=== PATIENT | female | born 1935 | race Caucasian/White ===

== ENCOUNTER 2019-10-18 10:39 | Outpatient (CLI) | payer MEDICARE, OTHER | END 2019-10-18 23:59 | disposition home or self-care (01) | LOC: LAB 10:39 | PROVIDERS: ATTEND Orthopaedic Surgery Sports Medicine | DX: Z01.812 Encounter for preprocedural laboratory examination (principal); Z11.59 Encounter for screening for other viral diseases | CPT/HCPCS: U0003-CS ==

== ENCOUNTER 2019-10-24 06:35 | Inpatient (IN) | payer MEDICARE, OTHER ==
[~2019-10-24] VITALS: Ht 160 cm; Wt 77.1 kg
[2019-10-24] MEDS ORDERED: POLYMYXIN B SULFATE 500,000 UNITS VIAL ONE (07:29)
[2019-10-24] MEDS ORDERED: VANCOMYCIN 1000 MG VIAL ONE (07:29)
[2019-10-24] MEDS ORDERED: BUPIVACAINE 0.25% 30 ML VIAL ONE (07:30)
[2019-10-24] MEDS ORDERED: BACITRACIN 50,000 UNITS VIAL ONE (07:30)
[2019-10-24 07:35] LABS: *BILIRUBIN,URIN NEGATIVE (NEGATIVE); *BLOOD, URINE NEGATIVE (NEGATIVE); *CLARITY,URINE CLEAR (CLEAR); *COLOR,URINE YELLOW (YELLOW); *KETONES,URINE NEGATIVE (NEGATIVE); *UROBILINOGEN,URINE 0.2 E.U./dl (NORMAL); LEUKOCYTE ESTERASE ,URINE TRACE (NEGATIVE); NITRITE, URINE NEGATIVE (NEGATIVE); UGLUCOSE NEGATIVE (NEGATIVE)
[2019-10-24 08:07] VITALS: BP 144/67
[2019-10-24 08:12] LABS: BACTERIA,URINE NONE SEEN /HPF (NONE SEEN); RBC,URINE 0-3 /HPF (0-3); SQUAMOUS EPITHELIAL CELL,UR FEW /HPF (NONE SEEN); WBC,URINE 0-3 /HPF (0-3)
[2019-10-24 08:13] LABS: URINE AMORPHOUS URATE FEW /HPF
[2019-10-24] MEDS ORDERED: BUPIVACAINE/EPI PF 0.25% 30 ML VIAL ONE (08:45)
[2019-10-24] MEDS ORDERED: ESMOLOL HCL 100 MG/10 ML VIAL IV ONE (11:35)
[2019-10-24] MEDS ORDERED: BACITRACIN 50,000 UNITS VIAL IM ONE (11:35)
[2019-10-24] MEDS ORDERED: CEFAZOLIN 1 G VIAL IM ONE (11:35)
[2019-10-24] MEDS ORDERED: VANCOMYCIN OP ONE (11:35)
[2019-10-24] MEDS ORDERED: ONDANSETRON 4 MG/2 ML VIAL IV ONE (11:35)
[2019-10-24] MEDS ORDERED: IV NORMAL SALINE 1000 ML BAG IV ONE ×2 (11:35)
[2019-10-24] MEDS ORDERED: DEXAMETHASONE SOD PHOSPHATE 4 MG INJ IV ONE (11:35)
[2019-10-24] MEDS ORDERED: POLYMYXIN B SULFATE 500,000 UNITS VIAL IM ONE (11:35)
[2019-10-24] MEDS ORDERED: SEVOFLURANE 250 ML BOTTLE IH ONE (11:35)
[2019-10-24] MEDS ORDERED: ETOMIDATE 20 MG/10 ML VIAL IV ONE (11:35)
[2019-10-24] MEDS ORDERED: SUCCINYLCHOLINE CHLORIDE 200 MG/10 ML VIAL IV ONE (11:35)
[2019-10-24] MEDS ORDERED: FENTANYL CITRATE 100 MCG/2 ML AMPUL ONE (11:48)
[2019-10-24] MEDS ORDERED: LABETALOL HCL 100 MG/20 ML VIAL ONE (12:04)
[2019-10-24] MEDS ORDERED: hydrALAZINE HCL 20 MG/1 ML VIAL ONE (12:50)
[2019-10-24] MEDS ORDERED: MORPHINE SULFATE 4 MG/1 ML DISP.SYRIN IV PRN (14:45)
[2019-10-24] MEDS ORDERED: ONDANSETRON 4 MG/2 ML VIAL IV PRN ×2 (14:45→15:00)
[2019-10-24] MEDS ORDERED: KETOROLAC TROMETHAMINE 30 MG INJ IVP PRN (14:45)
[2019-10-24] MEDS ORDERED: ZOLPIDEM 5 MG TABLET PO PRN (14:45)
[2019-10-24] MEDS ORDERED: IV D5W-0.45% NS +20 KCL 1,000 ML IV PRN (14:45)
[2019-10-24] MEDS ORDERED: ACETAMINOPHEN 325 MG TABLET PO PRN ×2 (14:45→15:00)
[2019-10-24] MEDS ORDERED: TEMAZEPAM 15 MG CAPSULE PO PRN (15:00)
[2019-10-24] MEDS ORDERED: MAGNESIUM HYDROXIDE 30 ML LIQUID UDC PO PRN (15:00)
[2019-10-24] MEDS ORDERED: Z GUARD REMEDY PASTE 57 GM TUBE TOP PRN (15:00)
[2019-10-24 16:17] VITALS: BP 144/62
[2019-10-24] MEDS ORDERED: BENZOCAINE/MENTH/CETYLPYRD LOZENGE MM PRN (16:45)
[2019-10-24] MEDS ORDERED: CEFAZOLIN 1 G in IV DEXTROSE 5% 50 ML IV SCH (18:00)
--- NOTE | 2019-10-24 19:11 | NUR ---
Patient received from surgery in stable condition with no signs of distress; patient with stable vital signs throughout shift;patient given pain medication from pain control ; patient calm and comfortable upon final assessment.
--- NOTE | 2019-10-24 19:30 | NUR ---
RECEIVED PT IN NO ACUTE DISTRESS. IV INTACT. SAFETY AND COMFORT PROVIDED. WILL CONTINUE TO MONITOR.
[2019-10-24 20:01] VITALS: BP 135/72
[2019-10-24] MEDS ORDERED: ROSUVASTATIN CALCIUM 10 MG TABLET PO SCH (21:00)
[2019-10-24] MEDS ORDERED: ATORVASTATIN 20 MG TABLET PO SCH (21:00)
--- NOTE | 2019-10-24 23:00 | NUR ---
HANDS OFF REPORT TO ANA HUTTON. PT IN NO ACUTE DISTRESS.SAFETY AND COMFORT PROVIDED.
--- NOTE | 2019-10-25 | NUR ---
Patient's IV got infiltrated and patient refusing to reinsert IV and does not want the IV fluids. Called Dr. Rojas w/ order OK not to reinsert IV and d/c IV fluids and IV ATB. N.o for Keflexb 500mg PO BID
[2019-10-25] MEDS: CEphaleXIN 500 MG CAPSULE PO SCH ×2 (00:30→08:49)
[2019-10-25] MEDS: OXYCODONE/APAP 5-325 MG TABLET PO PRN ×3 (00:38→11:44)
[2019-10-25 04:20] VITALS: BP 114/63
--- NOTE | 2019-10-25 06:55 | NUR ---
Patient slept well. No SOB noted. s/p L shoulder total replacement, dressing intact, sling on L arm kept in place. Medicated w/ PRN Percocet x 2 this shift. All needs attended. Will endorse accordingly
[2019-10-25] MEDS ORDERED: PANTOPRAZOLE SODIUM 40 MG TABLET.DR PO SCH (07:00)
[2019-10-25 07:10] LABS: BASOPHILS % (AUTO) 0.2 % (0.0-2.0); EOSINOPHILS % (AUTO) 0.4 % (0.0-7.0); HEMOGLOBIN 11.6 g/dL (10.9-14.3); LYMPHOCYTES # (AUTO) 2.1 K/uL (20.0-40.0); LYMPHOCYTES % (AUTO) 15.2 % (20.5-51.5); MEAN CORPUSCULAR HEMOGLOBIN 28.7 uug (24.7-32.8); MEAN CORPUSCULAR HGB CONC 34 g/dL (32.3-35.6); MEAN CORPUSCULAR VOLUME 84.2 fL (75.5-95.3); MONOCYTES # (AUTO) 1.4 K/uL (2.0-10.0); MONOCYTES % (AUTO) 10.3 % (0.0-11.0); NEUTROPHILS # (AUTO) 10.1 K/uL (1.8-8.9); NEUTROPHILS % (AUTO) 73.9 % (38.5-71.5); PLATELET COUNT (AUTO) 311 K/uL (179-408); RED BLOOD CELL COUNT(AUTO) 4.04 MIL/uL (3.63-4.92); WHITE BLOOD COUNT (AUTO) 13.7 K/uL (3.8-11.8)
[2019-10-25 07:28] LABS: PHOSPHOROUS 3.6 mg/dL (2.5-4.9); POTASSIUM 4.4 mmol/L (3.5-5.1)
[2019-10-25] MEDS ORDERED: LIOTHYRONINE SODIUM 5 MCG TABLET PO SCH (07:30)
[2019-10-25] MEDS ORDERED: THYROID 60 MG TABLET PO SCH (07:30)
[2019-10-25] MEDS ORDERED: VALSARTAN 160 MG TABLET PO SCH (09:00)
[2019-10-25] MEDS ORDERED: OLMESARTAN MEDOXOMIL 20 MG TABLET PO SCH (09:00)
[2019-10-25] MEDS ORDERED: ASPIRIN 81 MG TAB.CHEW PO SCH (09:00)
[2019-10-25 11:21] VITALS: BP 120/47
--- NOTE | 2019-10-25 12:09 | NUR ---
pt. to be discharged home today. Order by Dr. Rojas. Dr. Rojas wrote prescription for pt. Iván Silveira hospitalist is aware of discharge plans and stated to discharge and for her to continue all home medications at home. Pt. has PT at home.
--- NOTE | 2019-10-25 12:45 | NUR ---
pt. discharged home. ID band removed. all paperwork signed. prescription and discharge paperwork given to pt. vital signs stable.
== END 2019-10-25 12:50 | disposition home health service (06) | DRG 483 ==
LOC: DS 06:35 → MEDSURG3 14:05
PROVIDERS: ADMIT Nurse Practitioner Acute Care; ATTEND Nurse Practitioner Acute Care
PROC: 0RRK00Z Replacement of Left Shoulder Joint with Reverse Ball and Socket Synthetic Substitute, Open Approach (ICD-10-PCS; principal; 2019-10-24)
DX: M19.012 Primary osteoarthritis, left shoulder (principal); E03.9 Hypothyroidism, unspecified; E78.5 Hyperlipidemia, unspecified; E66.9 Obesity, unspecified; I10 Essential (primary) hypertension; Z98.84 Bariatric surgery status; Z68.30 Body mass index [BMI] 30.0-30.9, adult
CPT/HCPCS: 36415; 73020; 83735; 84100; 85025; A4649; A4663; C1776; G0378; J0330; J0360; J0690; J1100; J2270; J2405; J3010; J3370; J3490; J7030; J7060; J7120